=== PATIENT | female | born 2005 | race Two or more races ===

== ENCOUNTER 2025-05-26 00:36 | Emergency (ER) | payer MEDICAID, OTHER ==
[~2025-05-26] VITALS: Ht 167.6 cm; Wt 89.0 kg
--- NOTE | 2025-05-26 01:24 | ED.PDOC ---
History of Present Illness HPI Comments 19 y/o F presents with c/c lower abdominal pain, with associated nausea, vomiting, hematemesis, and diarrhea. Patient reports ongoing symptoms following initial, sudden, unprovoked, and atraumatic onset at 0400, yesterday. Patient endorses on having symptoms before in the past when she had stomach flu. Denies having any bloody stools, constipation, urinary symptoms, fever, chills, or further associated symptoms. Chief Complaint: Nausea/Vomiting Time Seen by MD: 01:15 Reviewed Notes: Nurses Notes, Medications, Allergies Allergies: Coded Allergies: NO KNOWN ALLERGIES (Unverified , 05/26/25) Home Meds Active Scripts Gabapentin (Once-Daily) (Gabapentin) 300 Mg Tab, 300 MG PO Q6HP PRN, #30 TAB Prov:NATHAN LOPEZ MD 05/26/25 Loperamide Hcl (Imodium) 2 Mg Cp, 2 MG PO Q6HP PRN, #30 CAP Prov:NATHAN LOPEZ MD 05/26/25 Ondansetron HCl (Ondansetron Hydrochloride) 8 Mg Tab, 8 MG PO Q6HP PRN, #30 TAB Prov:NATHAN LOPEZ MD 05/26/25 Information Source: Patient Mode of Arrival: Ambulatory Severity: Moderate Timing: Weeks Duration: Since onset Prehospital treatment: None Past Medical History PAST MEDICAL HISTORY: Denies Surgical History: Denies all surgeries OFFICE MESSENGER HELPER History: Denies all OFFICE MESSENGER HELPER Hx Family History Family History: Unknown Social History Smoker: Non-Smoker Alcohol: Occasionally Drugs: Denies Drug Use Lives In: Home All Other Systems: Reviewed and Negative (Comprehensive systems review obtained and negative except for what is stated in the HPI.) Physical Exam General Appearance: Mild Distress, Obese HEENT: Normal ENT Inspection, Pharynx Normal, TMs Normal Neck: Full Range of Motion, Non-Tender, Normal, Normal Inspection Respiratory: Chest Non-Tender, Lungs Clear, No Accessory Muscle Use, No Respiratory Distress, Normal Breath Sounds Cardiovascular: No Edema, No JVD, No Murmur, No Gallop, Normal Peripheral P ulses, Regular Rate/Rhythm Breast Exam: Deferred Gastrointestinal: No Organomegaly, Non Tender, No Pulsatile Mass, Normal Bowel Sounds, Soft Genitalia: Deferred Pelvic: Deferred Rectal: Deferred Extremities: No calf tenderness, Normal capillary refill, Normal inspection, Normal range of motion, Non-tender, No pedal edema Musculoskeletal : Apperance: Normal Neurologic: Alert, slide forming machine tender II-XII nml as Tested, No Motor Deficits, Normal Affect, Normal Mood, No Sensory Deficits Cerebellar Function: Normal Reflexes: Normal Skin: Dry, Normal Color, Warm Lymphatic: No Adenopathy Was a procedure done? Was a procedure done?: No Differential Dx Considerations may include: gastritis, gastroenteritis, GERD, PUD, viral syndrome, spoiled food, among others X-Ray, Labs, Meds, VS Vital Signs Date Time Temp Pulse Resp B/P (MAP) Pulse Ox O2 Delivery O2 Flow Rate FiO2 05/26/25 03:09 98.3 64 20 122/63 (82) 98 98.3 05/26/25 03:06 64 20 98 Room Air 05/26/25 00:36 98.3 76 18 122/70 98 98.3 Lab Test 05/26/25 04:15 05/26/25 01:31 Range/Units Urine Color Yellow Yellow Urine Clarity Clear Clear Urine pH 6.5 5.0-9.0 Urine Specific [place] 1.041 H 1.001-1.035 Urine Protein 2+ H Negative Urine Ketones 2+ H Negative Urine Blood 2+ H Negative /uL Urine Nitrite Negative Negative Urine Bilirubin Negative Negative Urine Urobilinogen 2 H Negative mg/dL Urine Leukocyte Esterase Negative Negative /uL Urine RBC 4 0 - 4 /hpf Urine Microscopic WBC 3 0-5 /HPF Urine Squamous Epithelial Cells Few <5 /hpf Urine Bacteria None seen None Seen /hpf Urine Mucus Few None Seen Urine Glucose Normal Normal mg/dL Urine Test Negative Negative White Blood Count 9.8 4.4-10.8 10^3/uL Red Blood Count 5.36 H 4.0-5.20 10^6/uL Hemoglobin 15.1 12.2-16.2 g/dL Hematocrit 43.6 36.0-46.0 % Mean Corpuscular Volume 81.3 80.0-100.0 fL Mean Corpuscular Hemoglobin 28.1 28.0-32.0 pg Mean Corpuscular Hemoglobin Concent 34.5 32.0-36.0 g/dL Red Cell Distribution Width 14.3 11.8-14.3 % Platelet Count 200 140-450 10^3/uL Mean Platelet Volume 9.9 6.9-10.8 fL Neutrophils (%) (Auto) 81.8 H 37.0-80.0 % Lymphocytes (%) (Auto) 9.3 L 10.0-50.0 % Monocytes (%) (Auto) 8.6 0.0-12.0 % Eosinophils (%) (Auto) 0.0 0.0-7.0 % Basophils (%) (Auto) 0.3 0.0-2.0 % Neutrophils # (Auto) 8.1 1.6-8.6 10 ^3/uL Lymphocytes # (Auto) 0.9 0.4-5.4 10 ^3/uL Monocytes # (Auto) 0.8 0-1.3 10 ^3/uL Eosinophils # (Auto) 0 0-0.8 10 ^3/uL Basophils # (Auto) 0 0-0.2 10 ^3/uL Nucleated Red Blood Cells 0.0 % Sodium Level 142 136-145 mmol/L Potassium Level 3.5 3.5-5.1 mmol/L Chloride Level 106 98-107 mmol/L Carbon Dioxide Level 24 20-31 mmol/L Anion Gap 12 5-15 Blood Urea Nitrogen 11 9-23 mg/dL Creatinine 0.74 0.550-1.02 mg/dL Glomerular Filtration Rate Calc 118 >90 mL/min BUN/Creatinine Ratio 14.9 10.0-20.0 Serum Glucose 102 74-106 mg/dL Calcium Level 9.4 8.7-10.4 mg/dL Magnesium Level 2.2 1.6-2.6 mg/dL Total Bilirubin 0.9 0.2-1.0 mg/dL Aspartate Amino Transferase (AST) 20 13-40 U/L Alanine Aminotransferase (ALT) 14 7-40 U/L Alkaline Phosphatase 52 46-116 U/L Total Protein 7.6 5.7-8.2 g/dL Albumin 5.1 H 3.2-4.8 g/dL Current Medications Medications (Trade) Dose Ordered Sig/Tashia Route Start Time Stop Time Status Last Admin Sodium Chloride 1,000 ml @ 1,000 mls/hr Q1H ONCE IV 05/26/25 01:30 05/26/25 02:29 DC 05/26/25 01:30 Ondansetron HCl (Zofran) 4 mg ONCE ONCE IV 05/26/25 01:30 05/26/25 01:31 DC 05/26/25 03:48 Loperamide HCl (Imodium Capsule) 4 mg ONCE ONCE PO 05/26/25 01:30 05/26/25 01:31 DC 05/26/25 03:44 Time of 1ST Reevaluation: 01:45 Reevaluation 1ST: Unchanged Patient Education/Counseling: Diagnosis, Treatment Family Education/Counseling: No Family Present SEPSIS Sepsis Screen Date sepsis recognized/suspect: May 26, 2025 Time Sepsis recognized/suspect: 35 Recent Procedure: No On Antibiotic Therapy: No Respiratory Rate >20: No Heart Rate >90: No Temp<36 C (96.8 F) or >38.3 C: No SBP <90 or MAP <65 mmHG: No New Acute Mental Status Change: No Is the patient on CPAP, BIPAP,: No Vital Signs Date Time Temp Pulse Resp B/P (MAP) Pulse Ox O2 Delivery O2 Flow Rate FiO2 05/26/25 03:09 98.3 64 20 122/63 (82) 98 98.3 05/26/25 03:06 64 20 98 Room Air 05/26/25 00:36 98.3 76 18 122/70 98 98.3 Laboratory Tests Test 05/26/25 01:31 White Blood Count 9.8 10^3/uL (4.4-10.8) Departure 1 Departure Time of Disposition: 03:00 Impression: Primary Impression: Abdominal cramping Additional Impression: Nausea vomiting and diarrhea Disposition: 01 HOME / SELF CARE / HOMELESS Condition: Stable e-Prescriptions Gabapentin (Once-Daily) (Gabapentin) 300 Mg Tab 300 MG PO Q6HP PRN, #30 TAB Prov: NATHAN LOPEZ MD 05/26/25 Loperamide Hcl (Imodium) 2 Mg Cp 2 MG PO Q6HP PRN, #30 CAP Prov: NATHAN LOPEZ MD 05/26/25 Ondansetron HCl (Ondansetron Hydrochloride) 8 Mg Tab 8 MG PO Q6HP PRN, #30 TAB Prov: NATHAN LOPEZ MD 05/26/25 Discharged With: Self Critical Care Note Critical Care Time?: No Stability Stability form required: No Heart Score Heart Score: Heart Score Response (Comments) Value History N/A 0 EKG N/A 0 Age N/A 0 Risk Factors N/A 0 Troponin N/A 0 Total 0 I personally scribed for NATHAN LOPEZ MD ([email or web address]) on 05/26/25 at 01:24. Electronically submitted by Ovi Magallanes [email or web address]). NATHAN LOPEZ MD May 26, 2025 01:24
[2025-05-26] MEDS: MORPHINE SULFATE 4 MG/ML SYR/VIAL IV ONE (01:30)
[2025-05-26] MEDS: SODIUM CHLORIDE 0.9% 1,000 ML IV ONE (01:30)
[2025-05-26 01:45] LABS: Hematocrit 43.6 % (36.0-46.0); Hemoglobin 15.1 g/dL (12.2-16.2); Mean Corpuscular Hemoglobin 28.1 pg (28.0-32.0); Mean Corpuscular Volume 81.3 fL (80.0-100.0); Nucleated Red Blood Cells % 0.0 %
[2025-05-26 02:01] LABS: Alanine Aminotransferase 14 U/L (7-40); Alkaline Phosphatase 52 U/L (46-116); Anion Gap 12 (5-15); BUN/Creatinine Ratio 14.9 (10.0-20.0); Bilirubin, Total 0.9 mg/dL (0.2-1.0); Blood Urea Nitrogen 11 mg/dL (9-23); Calcium 9.4 mg/dL (8.7-10.4); Carbon Dioxide 24 mmol/L (20-31); Chloride 106 mmol/L (98-107); Glucose 102 mg/dL (74-106); Magnesium 2.2 mg/dL (1.6-2.6); Potassium 3.5 mmol/L (3.5-5.1); Sodium 142 mmol/L (136-145); Total Protein 7.6 g/dL (5.7-8.2)
[2025-05-26 02:04] LABS: Albumin 5.1 g/dL (3.2-4.8)
[2025-05-26] MEDS ORDERED: ONDA-180 PO (02:46)
[2025-05-26] MEDS ORDERED: GABA300T4 PO (02:46)
[2025-05-26] MEDS ORDERED: LOPE2CAP16 PO (02:46)
[2025-05-26 03:09] VITALS: BP 122/63; PULSE 64; RESP 20; TEMP 98.3; O2SAT 98
[2025-05-26] MEDS: LOPERAMIDE HCL 2 MG CAP/TAB PO ONE (03:44)
[2025-05-26] MEDS: ONDANSETRON HCL 4 MG/2 ML VIAL IV ONE (03:48)
[2025-05-26 04:58] LABS: Urine Protein, UAD 2+ (Negative)
== END 2025-05-26 05:07 | disposition home or self-care (01) ==
LOC: ER 00:36
DX: R10.30 Lower abdominal pain, unspecified (principal); R11.2 Nausea with vomiting, unspecified; R19.7 Diarrhea, unspecified; Z79.899 Other long term (current) drug therapy
CPT/HCPCS: 36415; 80053; 81001; 81025; 83735; 85025; 96361; 96374; 99283; J2405; J7030